=== PATIENT | female | born 1970 | race Caucasian/White ===

== ENCOUNTER 2018-02-27 15:03 | Emergency (ER) | payer OTHER ==
[2018-02-27] MEDS ORDERED: NS 0.9% 1000 ML* 1,000 ML IV ONE (15:19)
--- NOTE | 2018-02-27 16:03 | RAD ---
Indication: Dizziness. CT of the brain was performed without IV contrast demonstration. No prior study is available for comparison. Ventricular structures are midline. There appears to be a mass in the left parasellar region extending to the left frontal lobe and middle cranial fossa. The mass is partially calcified and appears hyperdense and appears to be arising from the sphenoid bone. This is consistent with a meningioma. No evidence of intracranial hemorrhage is noted. Prior left craniotomy noted. IMPRESSION: Probable meningioma arising from the left parasellar region extending to the middle cranial fossa consistent with a sphenoid meningioma. No definite intracranial hemorrhage is noted. No prior study is available for comparison.
[2018-02-27 16:11] LABS: ABS Basophils 0.1 10^3/ul (0-0.2); ABS Eosinophils 0.1 10^3/ul (0-0.6); ABS Monocytes 0.6 10^3/ul (0-0.8); ABS Neutrophils 8.3 10^3/ul (1.5-7.7); ABS Nucleated RBC 0 10^3/ul; Eosinophil % 0.8 % (0-6); Hematocrit 42 % (35-47); Hemoglobin 14.4 g/dl (12.0-16.0); INR 0.87 (0.77-1.02); Lymphocyte % 24.5 % (25-47); Mean Corpuscular HGB Conc 35 g/dl (31-36); Mean Corpuscular Hemoglobin 30 pg (27-31); Mean Corpuscular Volume 87 fL (80-97); Nucleated Red Blood Cells % 0.1; Platelet Count 463 10^3/ul (150-450); Red Cell Distribution Width 13 % (10.5-15); White Blood Count 12.1 10^3/ul (3.5-10.8)
[2018-02-27 16:20] LABS: EGFR Non-African American 84.5 (>60)
[2018-02-27] MEDS ORDERED: Acetaminophen TAB* 325 MG PO ONE (16:43)
[2018-02-27 17:21] LABS: Urine Appearance Clear; Urine Blood Negative (Negative); Urine Color Straw; Urine Ketones Negative (Negative); Urine Protein Negative (Negative); Urine Specific Gravity 1.003 (1.010-1.030); Urine Urobilinogen Negative (Negative)
[2018-02-27] MEDS ORDERED: Acetaminophen TAB* 325 MG ONE (17:28)
[2018-02-27 17:43] VITALS: BP 139/85
--- NOTE | 2018-02-27 18:43 | ED ---
Jerrell Farrell Tariq, scribed for Ryley Wayne MD on 02/27/18 at 1527 . Dizziness - HPI Summary HPI Summary: A 47 year old female THADDEUS presents to ED c/o dizziness. According to pt, she has had dizziness and nausea along with some slight right eye vision changes/ blurriness for the past 2 days (). Additionally, she notes pressure and discomfort. Pt denies any fever, cough or congestion. She stated that she is somewhat shaky and characterizes the Sx has "pushing down dizziness". 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 She stated that they were concerned of a cavernous sinus thrombosis. Hx of meningioma to left cavernous sinus. - History Of Current Complaint Chief Complaint: EDDizziness Stated Complaint: DIZZINESS Time Seen by Provider: 02/27/18 15:07 Hx Obtained From: Patient Onset/Duration: Still Present - Slightly Timing: Frequency Of Episodes Character: Lightheaded Aggravating Factor(s): Nothing Alleviating Factor(s): Nothing Associated Signs And Symptoms: Positive: Nausea, Other: - Dizziness, vision changes - Allergies/Home Medications Allergies/Adverse Reactions: Allergies Allergy/AdvReac Type Severity Reaction Status Date / Time No Known Allergies Allergy Unknown Verified 02/27/18 15:18 Reaction Details Home Medications: Home Medications Claritin 10 MG TAB(NF) 10 mg PO DAILY 02/27/18 [History Confirmed 02/27/18] PMH/Surg Hx/FS Hx/Imm Hx Endocrine/Hematology History: Denies: Hx Diabetes Cardiovascular History: Denies: Hx Hypertension Infectious Disease History: Yes Infectious Disease History: Denies: Traveled Outside the [place] in Last 30 Days - Family History Known Family History: Positive: Other - Benign grade one meningioma Negative: Hypertension, Diabetes - Social History Alcohol Use: Occasionally Smoking Status (MU): Former Smoker - Quite 9 years ago Review of Systems Negative: Fever Positive: Blurred Vision Positive: Other - NEGATIVE: Congestion. Negative: Cough Positive: Nausea Neurological: Other - POSITIVE: Dizziness All Other Systems Reviewed And Are Negative: Yes Physical Exam - Summary Physical Exam Summary: General:well-appearing, no pain distress Skin:warm, color reflects adequate perfusion, dry Head:normal Eyes:Blurred vision of upper field in right eye ENT:normal Neck:supple, nontender Respiratory:CTA, breath sounds present Cardiovascular:RRR Abdomen:soft, nontender Bowel:present Musculoskeletal:normal, strength/ROM intact Neurological:sensory/motor intact, A&O x3. Temporals are non-tender to palpation. Psychological:affect/mood appropriate GCS: 15 Triage Information Reviewed: Yes Vital Signs On Initial Exam: Initial Vitals Temp Pulse Resp BP Pulse Ox 99.2 F 73 16 181/107 98 02/27/18 15:09 02/27/18 15:09 02/27/18 15:09 02/27/18 15:09 02/27/18 15:09 Vital Signs Reviewed: Yes Diagnostics - Vital Signs Vital Signs Temp Pulse Resp BP Pulse Ox 02/27/18 15:09 99.2 F 73 16 181/107 98 - Laboratory Lab Results: Lab Results 02/27/18 02/27/18 02/27/18 Range/Units 15:48 15:48 15:48 WBC 12.1 H (3.5-10.8) 10^3/ul RBC 4.80 (4.00-5.40) 10^6/ul Hgb 14.4 (12.0-16.0) g/dl Hct 42 (35-47) % MCV 87 (80-97) fL MCH 30 (27-31) pg MCHC 35 (31-36) g/dl RDW 13 (10.5-15) % Plt Count 463 H (150-450) 10^3/ul MPV 7.0 L (7.4-10.4) um3 Neut % (Auto) 69.1 (38-83) % Lymph % (Auto) 24.5 L (25-47) % Hooker % (Auto) 5.2 (0-7) % Eos % (Auto) 0.8 (0-6) % Baso % (Auto) 0.4 (0-2) % Absolute Neuts (auto) 8.3 H (1.5-7.7) 10^3/ul Absolute Lymphs (auto) 3.0 (1.0-4.8) 10^3/ul Absolute Monos (auto) 0.6 (0-0.8) 10^3/ul Absolute Eos (auto) 0.1 (0-0.6) 10^3/ul Absolute Basos (auto) 0.1 (0-0.2) 10^3/ul Absolute Nucleated RBC 0 10^3/ul Nucleated RBC % 0.1 INR (Anticoag Therapy) 0.87 (0.77-1.02) APTT 30.7 (26.0-36.3) seconds Sodium 138 (135-145) mmol/L Potassium 3.8 (3.5-5.0) mmol/L Chloride 103 (101-111) mmol/L Carbon Dioxide 24 (22-32) mmol/L Anion Gap 11 (2-11) mmol/L BUN 12 (6-24) mg/dL Creatinine 0.74 (0.51-0.95) mg/dL Est GFR ( Amer) 102.2 (>60) Est GFR (Non-Af Amer) 84.5 (>60) BUN/Creatinine Ratio 16.2 (8-20) Glucose 101 H (70-100) mg/dL Calcium 9.7 (8.6-10.3) mg/dL Magnesium 2.0 (1.9-2.7) mg/dL Total Bilirubin 0.40 (0.2-1.0) mg/dL AST 28 (13-39) U/L ALT 34 (7-52) U/L Alkaline Phosphatase 97 (34-104) U/L C-Reactive Protein 2.59 (<8.01) mg/L Total Protein 7.6 (6.4-8.9) g/dL Albumin 4.3 (3.2-5.2) g/dL Globulin 3.3 (2-4) g/dL Albumin/Globulin Ratio 1.3 (1-3) TSH Pending Beta HCG, Quant < 0.60 mIU/mL Result Diagrams: 02/27/18 15:48 02/27/18 15:48 Lab Statement: Any lab studies that have been ordered have been reviewed, and results considered in the medical decision making process. - CT BRAIN CT CT Interpretation Completed By: Radiologist - Probable meningioma arising from the left parasellar region extending to the middle cranial fossa consistent with a sphenoid meningioma. No definite intracranial hemorrhage is noted. No prior study is available for comparison. ED PHYSICIAN REVIEWED THIS RADIOLOGY REPORT. - EKG 1524 Cardiac Rate: NL - 68 BPM EKG Rhythm: Sinus Rhythm ST Segment: Normal Ectopy: None Dizzy Course/Dx - Course Course Of Treatment: DISCUSSED RESULTS WITH THE PATIENT. DIZZINESS AND HEAD PRESSURE DECREASED IN ED. DISCUSSED WITH DR BROOKE, NEUROLOGY. THE PLAN IS FOR THE PATIENT TO F/U WITH HER NEUROSURGEON FOR FURTHER EVALUATION; RETURN TO ED SOONER IF WORSE. - Diagnoses Provider Diagnoses: Dizziness, Headache Discharge - Sign-Out/Discharge Documenting (check all that apply): Discharge/Admit/Transfer - Discharge Plan Condition: Stable Disposition: HOME Patient Education Materials: Acute Headache (ED), Dizziness (ED) Referrals: [facility] [place] [facility]IAN REFERRAL [Outside] Additional Instructions: FOLLOW UP WITH YOUR NEUROSURGEON. CALL THEM SOON POSSIBLE FOR FOLLOW UP. GET RECHECKED FOR ANY WORSENING OF YOUR CONDITION; WEAKNESS, NUMBNESS, DIFFICULTY WITH SPEECH OR VISION OR QUESTIONS OR CONCERNS. - Billing Disposition and Condition Condition: STABLE Disposition: Home The documentation as recorded by the Jerrell max Tariq accurately reflects the service I personally performed and the decisions made by me, Ryley Wayne MD.
== END 2018-02-27 17:42 | disposition home or self-care (01) ==
LOC: ED 15:03
DX: R42 Dizziness and giddiness (principal); R51 Headache; Z87.891 Personal history of nicotine dependence; Z86.011 Personal history of benign neoplasm of the brain
CPT/HCPCS: 36415; 70450; 80053; 81003; 83735; 84443; 84702; 85025; 85610; 85730; 86140; 93005; 96360; 99282; A9270-GY